=== PATIENT | male | born 1970 | race Caucasian/White ===

== ENCOUNTER 2016-10-01 16:14 | Emergency (ER) | payer BC, OTHER ==
[2016-10-01 16:40] VITALS: BP 119/79
--- NOTE | 2016-10-01 17:11 | UC ---
Hand/Wrist HPI - HPI Summary HPI Summary: 45 yo male with three problems 1. right little finger injury x 1 week jammed hx of remote injury as teen ? fx dislocation 2. ? bilateral inguinal hernias and umbilical hernia x mos 3. multiple tick bites this summer (at least 6) no rash but a week ago had an unexplained fever x 2 days - History Of Current Complaint Chief Complaint: UCUpperExtremity Stated Complaint: TICK BITE,RIGHT HAND PINKY COMPLAINT Time Seen by Provider: 10/01/16 17:00 Hx Obtained From: Patient Onset/Duration: Sudden Onset, Lasting Days Severity Initially: Moderate Pain Intensity: 2 Pain Scale Used: 0-10 Numeric Character Of Pain: Dull, Aching Aggravating Factor(s): Movement Alleviating: Nothing Associated Signs And Symptoms: Positive: Swelling Related History: Dominant Hand Right - Allergies/Home Medications Allergies/Adverse Reactions: Allergies Allergy/AdvReac Type Severity Reaction Status Date / Time No Known Allergies Allergy Verified 10/01/16 16:40 PMH/Surg Hx/FS Hx/Imm Hx Previously Healthy: Yes - Surgical History Surgical History: None - Family History Known Family History: Positive: Hypertension - Social History Alcohol Use: Rare Substance Use Type: None Smoking Status (MU): Heavy Every Day Tobacco Smoker Type: Cigarettes Amount Used/How Often: 3/4 ppd Review of Systems Constitutional: Negative Skin: Negative Eyes: Negative ENT: Negative Respiratory: Negative Cardiovascular: Negative Gastrointestinal: Negative Genitourinary: Negative Motor: Negative Neurovascular: Negative Musculoskeletal: Arthralgia, Decreased ROM, Edema Neurological: Negative Psychological: Negative All Other Systems Reviewed And Are Negative: Yes Physical Exam Triage Information Reviewed: Yes Appearance: Well-Appearing, No Pain Distress, Well-Nourished Vital Signs: Initial Vital Signs Temp 98.9 F 10/01/16 16:34 Pulse 70 10/01/16 16:34 Resp 16 10/01/16 16:34 BP 119/79 10/01/16 16:34 Pulse Ox 98 10/01/16 16:34 Vital Signs Reviewed: Yes Eyes: Positive: Conjunctiva Clear ENT: Positive: Hearing grossly normal. Negative: Nasal congestion, Nasal drainage, Tonsillar swelling, Tonsillar exudate, Trismus, Muffled/hoarse voice Neck: Positive: Supple, Nontender Respiratory: Positive: Lungs clear, Normal breath sounds, No respiratory distress, No accessory muscle use Cardiovascular: Positive: RRR, No Murmur Abdomen Description: Positive: Nontender, Soft, Hernia @ - R/L inguinal and umbilical Musculoskeletal: Positive: Other: - see image Neurological: Positive: Alert Psychological Exam: Normal Skin Exam: Normal Hand/Wrist Course/Dx - Course Course Of Treatment: finger splint applied by MD - Differential Dx/Diagnosis Provider Diagnoses: 1. chip fx dorsum distal prox phal involving PIP joint ( closed/minimally displaced). 2. tick bites. 3. bilateral inguinal hernia/? umbilical hernia Discharge - Discharge Plan Condition: Stable Disposition: HOME Patient Education Materials: Finger Fracture (ED), Inguinal Hernia (ED), Umbilical Hernia (ED) Referrals: Elias Caro MD [Medical Doctor] - As Soon As Possible Additional Instructions: you need to see a general surgeon about your hernias call orthopedist in AM Lyme test pending Images Hands: 1 - swollen/tender/decreased ROM
--- NOTE | 2016-10-01 17:51 | RAD ---
INDICATION: Pain at the proximal interphalangeal joint of the right small finger after "jamming-type injury" one week earlier TECHNIQUE: 3 views of the right small finger were obtained. FINDINGS: Best depicted on the lateral view, there is a minimally displaced fracture involving the dorsal proximal corner of the right small finger middle phalanx. The remaining visualized bones are intact and appropriately aligned. IMPRESSION: MINIMALLY DISPLACED AVULSION FRACTURE INVOLVING THE DORSAL PROXIMAL CORNER OF THE RIGHT SMALL FINGER MIDDLE PHALANX.
== END 2016-10-01 18:10 | disposition home or self-care (01) ==
LOC: UCCORT 16:14
DX: S62.616A Displaced fracture of proximal phalanx of right little finger, initial encounter for closed fracture (principal); W23.0XXA Caught, crushed, jammed, or pinched between moving objects, initial encounter; S30.860A Insect bite (nonvenomous) of lower back and pelvis, initial encounter; W57.XXXA Bitten or stung by nonvenomous insect and other nonvenomous arthropods, initial encounter; Y93.9 Activity, unspecified; Y92.9 Unspecified place or not applicable; K40.20 Bilateral inguinal hernia, without obstruction or gangrene, not specified as recurrent; F17.210 Nicotine dependence, cigarettes, uncomplicated
CPT/HCPCS: 73140; 86618; 99202; G0463

== ENCOUNTER 2017-03-05 08:20 | Inpatient (IN) | payer OTHER ==
[~2017-03-05 08:20] MED LIST: Buffered Lidocaine 0.9% SYRIN* 5 ML/SYR SYRINGE INTRADERM ONE; Dexamethasone IV* 4 MG/ML 1 ML (4 MG) IV SLOW PU ONE; Famotidine IV* 10 MG/ML 2 ML (20 mg) IV ONE
[2017-03-05] MEDS ORDERED: Dexamethasone IV* 4 MG/ML 1 ML (4 MG) ONE (08:41)
[2017-03-05] MEDS ORDERED: Famotidine IV* 10 MG/ML 2 ML (20 mg) ONE (08:41)
[2017-03-05] MEDS ORDERED: ceFAZolin 2 GM PREMIX (*) 2 GM/50 ML BAG IVPB ONE (08:42)
[2017-03-05] MEDS ORDERED: Buffered Lidocaine 0.9% SYRIN* 5 ML/SYR SYRINGE ONE (08:42)
[2017-03-05] MEDS ORDERED: fentaNYL* 50 MCG/ML 2 ML VIAL (100 MCG VIAL) IV PRN (10:53)
[2017-03-05] MEDS ORDERED: oxyCODONE/Acetamin 5/325 MG* TAB PO PRN (10:53)
[2017-03-05] MEDS ORDERED: HYDROcodone/ACETAMIN 5-325 MG* 1 TAB PO PRN (10:53)
[2017-03-05] MEDS ORDERED: PROCHLORPERAZINE INJ 5 MG/ML 2 ML VIAL IV PRN (10:53)
[2017-03-05] MEDS ORDERED: Bupivacaine 0.5% SDV PF* 30 ML VIAL ONE (10:56)
[2017-03-05] MEDS ORDERED: Midazolam* 1 MG/ML 5 ML VIAL (5 MG) ONE (11:03)
[2017-03-05] MEDS ORDERED: fentaNYL* 50 MCG/ML 2 ML VIAL (100 MCG VIAL) ONE (11:03)
[2017-03-05] MEDS ORDERED: Lidocaine 2% PF * 5 ML VIAL ONE (11:10)
[2017-03-05] MEDS ORDERED: Propofol* 10 MG/ML 20 ML BTL IV PUSH ONE (11:10)
[2017-03-05] MEDS ORDERED: Ondansetron INJ* 2 MG/ML VIAL ONE (11:39)
[2017-03-05] MEDS ORDERED: traZODone TAB* 50 MG TAB PO PRN (11:50)
[2017-03-05] MEDS ORDERED: diPHENhydraMINE IV* 50 MG/ML 1 ml VIAL (BENADRYL) IV PRN (11:50)
[2017-03-05] MEDS ORDERED: Ondansetron INJ* 2 MG/ML VIAL IV PRN (11:50)
[2017-03-05] MEDS ORDERED: oxyCODONE TAB* 5 MG TAB PO PRN (11:53)
[2017-03-05] MEDS: Ibuprofen TAB* 600 MG PO PRN (15:53)
[2017-03-05] MEDS: ceFAZolin 1 GM VIAL(*) 1 GM in NS 0.9% 50 ML* 50 ML IVPB SCH (17:45)
[2017-03-06] MEDS: ceFAZolin 1 GM VIAL(*) 1 GM in NS 0.9% 50 ML* 50 ML IVPB SCH ×2 (02:46→09:51)
[2017-03-06] MEDS: Ibuprofen TAB* 600 MG PO PRN ×4 (02:52→23:31)
--- NOTE | 2017-03-06 03:44 | OP ---
DATE OF OPERATION: 03/05/17 - ROOM #340 DATE OF : 68 SURGEON: Emil Tompkins MD MANAGER FLIGHT OPERATIONS: LEONCIO Negrete ANESTHESIOLOGIST: Kera Kwong MD ANESTHESIA: MAC with local anesthesia. PRE-OP DIAGNOSIS: Right foot wound with deep infection. POST-OP DIAGNOSIS: Right foot wound with deep infection. OPERATIVE PROCEDURE: 1. Irrigation and debridement of the right foot below the fascia one area. 2. Placement of a vacuum suction dressing. IMPLANTS: None. TOURNIQUET TIME: Less than 30 minutes with an ankle Esmarch tourniquet. SPECIMENS: Deep culture x2 to Pathology. ESTIMATED BLOOD LOSS: Minimal. COMPLICATIONS: None. STATUS: Stable from the operating room to the recovery room and admitted to the hospital floor. INDICATIONS FOR PROCEDURE: Jamal sustained a crush injury to his right foot sustaining metatarsal fractures and a dorsal foot wound. He had had a bout of cellulitis and improved and the wound was actually starting to improve and then a few days ago he started to notice a purulent drainage. We discussed both nonoperative and operative options at length in the office and in the preoperative holding area. We discussed the nature and risks of surgery in careful detail, which included but were not limited to persistent infection, recurrence, wound problems, nerve injury, neuroma, RSD, persistent symptoms and even the remote chance of a catastrophic complication including the loss of limb. DESCRIPTION OF PROCEDURE: The patient was seen in the preoperative holding unit and informed and written consent was obtained. The appropriate extremity was marked. The patient was then brought to the operating room and carefully positioned on the operating room table. Anesthesia was induced. All bony prominences were padded with great care. A chlorhexidine based pre-scrub was performed followed by prep and drape with Betadine standard sterile fashion. Surgical safety pause was then conducted in which we confirmed the appropriate patient, extremity, planned procedure, availability of equipment, indication, administration of prophylactic antibiotics, which were to be held until cultures were sent and DVT prophylaxis in the form of compression boot on the nonsurgical extremity. We began by placing an ankle Esmarch tourniquet. The small skin bridge between two wounds was then excised and the edges of the wounds were excised as well to get to a bleeding rim. The wound was then explored and it did undermine distally. While dissecting into that area distally, a pocket of pus was encountered and there was obvious purulence expressed. Two sets of cultures were sent from this. Devitalized and infected tissue was removed with a scalpel sharply. The scalpel was also used to incise the fascia. There was no obvious purulence around the tendons and into the deep interosseous space. There was no obvious infection tracking down to the bone. A curette was then used to scrape away any further unhealthy and infected looking tissue and cysto tubing was used to copiously irrigate both the wound and the undermined area. An extensive debridement was performed while irrigating and after the copious irrigation, all the remaining tissue appeared healthy and perfused. The dimensions of the wound were 5 cm wide, 2.5 cm in the proximal and distal direction and about 1.5 cm in depth. Again, there was about 2 cm of undermining distally as well. Minimal blood was lost. At this point, a wound VAC was placed in the standard fashion into the wound, and had great suction without any leaks on a leak check. The patient was then awakened from anesthesia and transferred to the recovery room in stable condition. Complications none. Needle and sponge counts were correct at the end of the case. ATTESTATION: I attest that I was present, scrubbed and performed the entire procedure myself. POSTOPERATIVE PLAN: Jamal will be admitted to the hospital for an infection disease consult, which was placed. We will follow up the OR cultures. He will be weightbearing for the metatarsal fractures and we will come up with an antibiotic plan and go from there. We will plan on changing the VAC every 3 days. [id number]/[facility] #: [id number] MTDAndreea
[2017-03-06] MEDS: Aspirin TAB* 325 MG PO SCH (09:50)
--- NOTE | 2017-03-06 13:08 | PN ---
Progress Note - Progress Note Date of Service: 03/06/17 SOAP: Subjective: 46 y/o male with crush injury to R foot 12/30/2016 with 2nd infection, s/p I&D by Dr. Tompkins 03/05/2017 with wound vac placement. Patient report feeling well, numbness to top of foot, pain controlled. VSS afebrile overnight. Objective: General- Well appearing, NAD AO resting in bed comfortably MSK- wound vac in place, good suction over doral right foot, + rom r toes wihout difficult, cap refill <2 seconds, PT 2+, neg homans R LE, no erythema, streaking noted. SITLT R LE grossly. surgical dressing intact, no drainage, odor noted, wound vac outptu seroang. Vital Signs Temp 97.8 F 03/06/17 11:24 Pulse 65 03/06/17 11:24 Resp 16 03/06/17 11:24 BP 107/64 03/06/17 11:24 Pulse Ox 97 03/06/17 11:24 Intake & Output 03/05/17 03/06/17 03/06/17 18:59 06:59 18:59 Intake Total 1949 1083 769 Output Total 1400 1250 1500 Balance 405 -807 -974 Weight 94.347 kg Intake: IV Fluids 1104 83 30 ABX - CEFAZOLIN 53 LR 154 30 30 NS 50ML, Cefazolin 2G 50 lr 900 IVPB 59 ABX - CEFAZOLIN 59 Medicated IV 60 Cefazolin 60 Oral 785 1000 680 Output: Urine 1400 1250 1500 Other: Estimated Void Medium Medium Date of Last Bowel 03/06/17 Movement # Bowel Movements 1 Estimated Stool Amount Medium # Voids 1 1 Assessment: 46 y/o male with crush injury to R foot 12/30/2016 with 2nd infection, s/p I&D by Dr. Tompkins 03/05/2017 with wound vac placement. Plan: - WBAT with post-op shoe on - Wound vac change in ~ 2-3 days - Follow up with DR. Tompkins as outpatient within 5-7 days - Awaiting ID consultation for recs - Possible d/c home today pending wound vac arrangements and ID recs Active Medications Generic Name Dose Route Start Last Admin Trade Name Freq PRN Reason Stop Dose Admin Acetaminophen 650 mg 03/05/17 11:50 Tylenol Tab* PO Q4H PRN PAIN OR TEMPERATURE Aspirin 325 mg 03/06/17 09:00 03/06/17 09:50 Aspirin Tab* PO 325 mg DAILY ANDRES Administration Diphenhydramine HCl 25 mg 03/05/17 11:50 Benadryl Iv* IV Q6H PRN itching Lactated Ringer's 1,000 mls @ 100 mls/hr 03/05/17 12:00 Lactated Ringers 1000 Ml Bag* IV PER RATE ANDRES Cefazolin Sodium 1 gm/ 50 mls @ 200 mls/hr 03/06/17 18:30 Dextrose IVPB Q8H ANDRES Ibuprofen 600 mg 03/05/17 11:53 03/06/17 09:50 Motrin Tab* PO 600 mg Q6H PRN Administration PAIN Ondansetron HCl 4 mg 03/05/17 11:50 Zofran Inj* IV Q6H PRN nausea Oxycodone HCl 5 mg 03/05/17 11:53 Roxycodone Tab* PO Q4H PRN PAIN Trazodone HCl 25 mg 03/05/17 11:50 Desyrel Tab* PO BEDTIME PRN insomnia <Shae Mcdermott - Last Filed: 03/06/17 13:01> - Progress Note SOAP: Subjective: [] Saw Jamal this evening. Pain improved. Doing well Objective: []improved erythema. vac with good suction Assessment: []Doing well POD1 I&D, vac. Here thru weekend for abx Plan: -Heel Weight bearing only in postop shoe on right foot -IV abx per ID -wound vac change Thursday -Likely home Thursday Emil Tompkins MD [] <Emil Tompkins - Last Filed: 03/06/17 18:07>
[2017-03-06] MEDS: Cefepime 2 GM in Dextrose(*) 2 GM/50 ML BAG IV SCH (15:31)
[2017-03-06] MEDS: metroNIDAZOLE IV 500 MG/100ML* 500 MG/100 ML BAG IVPB SCH (16:19)
[2017-03-06] MEDS ORDERED: ceFAZolin 1 GM VIAL(*) 1 GM in D5W 50 ML BAG* 50 ML IVPB SCH (18:30)
[2017-03-06] MEDS: Acetaminophen TAB* 325 MG PO PRN (21:15)
--- NOTE | 2017-03-06 21:30 | CONS ---
CONSULTATION REPORT: DATE OF CONSULT: 03/06/17 REQUESTING PHYSICIAN: Dr. Tompkins. CONSULTING SERVICE: Infectious Disease. REASON FOR CONSULT: Right foot infection. IMPRESSION: Crush injury to the right foot with a 50-ton trailer in December, multiple fractures, fractured blisters, wound development, which eventually included purulent drainage. Taken to the OR on the [address] Tompkins for incision and debridement of purulent and devitalized infected tissues down to the fascia. Cultures are growing Pseudomonas and group B Strep. Staph PCR is negative. Given the duration since the time of the fracture and open wounds, I think acute osteomyelitis is likely and that we shall treat as such. RECOMMENDATION: Start cefepime 2 g IV every 12 hours. We will check his kidney function. We will add Flagyl 500 mg IV every 12 hours. Once we have the final susceptibility data, I will come up with a long-term home IV antibiotic plan for him. HISTORY OF PRESENT ILLNESS: This is a 46-year-old man who was at work when he had a crush injury of the right foot when 50-ton trailer fell on his wearing steel toe boots. He was originally taken care of in [place]. He eventually got a second opinion from Dr. Tompkins and in January had a CT scan on the that showed transverse nondisplaced fracture of the distal first metatarsal , a displaced fracture of the distal second metatarsal, a nondisplaced fracture of the mid third metatarsal, and a nondisplaced fracture of the distal fourth metatarsal. He had developed fever blisters previously and was also being treated with Keflex and IV clindamycin from time to time in [place]. His wounds have been healing, but then opened up and started having purulent drainage last week. Dr. Tompkins admitted him on for debridement as described above. He has got some pain. He has no fever, chills, or sweats. Not having diarrhea on Ancef here. PAST MEDICAL HISTORY: Osteoarthritis. MEDICATIONS: 1. Tylenol. 2. Aspirin. 3. Ancef 1 g IV every 8 hours. 4. Ibuprofen. 5. Trazodone. 6. Oxycodone. ALLERGIES: No known drug allergies. FAMILY HISTORY: No recurrent infections. SOCIAL HISTORY: Lives in [place], works for the [employer]. Lives with family. No travel. No sick contacts. REVIEW OF SYSTEMS: All negative, except as noted above. PHYSICAL EXAM: Vital Signs: Temperature 36.6, heart rate 60, respiratory rate 16, blood pressure 107/64, O2 sat 97% on room air. In general, he is awake, not in distress. Neurologic: He is oriented x3, follows all commands. HEENT: There is no conjunctival hemorrhage. Oropharynx: Without lesions. Neck: Supple without nuchal rigidity. Lymph Nodes: There is no inguinal, axillary, or epitrochlear lymphadenopathy. Heart is regular rate and rhythm without murmurs, rubs, or gallops. Lungs are clear to auscultation bilaterally. Abdomen: Soft, nontender, nondistended. There are bowel sounds present. Skin : There is no rash or splinter hemorrhage. Musculoskeletal: Right foot is casted. DIAGNOSTIC STUDIES/LAB DATA: None presently. The Gram-stain showed gram- positive cocci and gram-negative rods. The culture is growing Pseudomonas and group B Strep. Staph aureus PCR was negative. Please see impressions and recommendations outlined above. Thank you for asking me to see Mr. Whitmore in consultation. [id number]/[facility] #: [id number] CATHOLIC HEALTHAndreea
[2017-03-07] MEDS: Cefepime 2 GM in Dextrose(*) 2 GM/50 ML BAG IV SCH ×2 (02:58→15:19)
[2017-03-07] MEDS: metroNIDAZOLE IV 500 MG/100ML* 500 MG/100 ML BAG IVPB SCH ×2 (03:43→15:51)
[2017-03-07 05:40] LABS: Hematocrit 37 % (42-52); Hemoglobin 12.6 g/dl (14.0-18.0); Mean Corpuscular HGB Conc 34 g/dl (31-36); Mean Corpuscular Hemoglobin 29 pg (27-31); Mean Corpuscular Volume 85 fL (80-94); Mean Platelet Volume 10 um3 (7.4-10.4); Red Blood Count 4.38 10^6/ul (4.0-5.4); Red Cell Distribution Width 14 % (10.5-15); White Blood Count 6.6 10^3/ul (3.5-10.8)
[2017-03-07 05:51] LABS: Albumin 3.8 g/dL (3.2-5.2); BUN/Creatinine Ratio 19.4 (8-20); Calcium 8.9 mg/dL (8.6-10.3); EGFR African American 105.4 (>60); Globulin 2.1 g/dL (2-4); Potassium 4.3 mmol/L (3.5-5.0); Total Bilirubin 0.5 mg/dL (0.2-1.0); Total Protein 5.9 g/dL (6.4-8.9)
[2017-03-07] MEDS: Ibuprofen TAB* 600 MG PO PRN ×3 (08:36→21:22)
[2017-03-07] MEDS: Aspirin TAB* 325 MG PO SCH (08:36)
--- NOTE | 2017-03-07 10:29 | PN ---
Progress Note - Progress Note Date of Service: 03/07/17 SOAP: Subjective: Foot feels better. no complaints [] Objective: Temp Pulse Resp BP Pulse Ox 97.1 F 56 16 108/69 98 03/07/17 08:06 03/07/17 08:06 03/07/17 08:40 03/07/17 08:06 03/07/17 08:40 R foot: erythema and edema improved vac with good suction WBC 5.6 Cx's growing pseudamonas and strep agaltaciae [] Assessment: doing well POD2 foot I&D and vac [] Plan: Heel WB in postop shoe RLE vac at 125 abx per ID []
[2017-03-07] MEDS: Acetaminophen TAB* 325 MG PO PRN ×2 (12:43→20:05)
[2017-03-08] MEDS: Cefepime 2 GM in Dextrose(*) 2 GM/50 ML BAG IV SCH ×2 (02:57→15:12)
[2017-03-08] MEDS: Ibuprofen TAB* 600 MG PO PRN ×3 (03:31→23:41)
[2017-03-08] MEDS: metroNIDAZOLE IV 500 MG/100ML* 500 MG/100 ML BAG IVPB SCH ×2 (04:02→15:45)
[2017-03-08] MEDS: Aspirin TAB* 325 MG PO SCH (08:27)
--- NOTE | 2017-03-08 09:32 | PN ---
Progress Note - Progress Note Date of Service: 03/08/17 SOAP: Subjective: POD #3 right foot I&D with VAC placement. States that he is doing ok, foot is sore. Denies CP/SOB, f/c Objective: Vitals: Temp Pulse Resp BP Pulse Ox 97.1 F 56 18 125/75 95 03/08/17 07:28 03/08/17 07:28 03/08/17 08:00 03/08/17 07:28 03/08/17 08:00 Gen: A&Ox3, NAD at rest sitting in bed RLE: VAC dressing C/D/I, mild edema to foot. No erythema or warmth. Sensation decreased to toes but intact to light touch. +f/e at MTPs. DP 2+ Labs: Microbiology 03/05/17 11:32 Skin and Soft Tissue MRSA/MSSA (PCR - Final Foot Right Mrsa Negative S.aureus Negative Gram Stain - Final Wound Culture - Preliminary Pseudomonas Aeruginosa Strep Agalactiae - (Group B) Serratia Marcescens 03/05/17 11:32 Anaerobic Culture - Preliminary Wound - Right Assessment: POD #3 Right foot I&D with VAC placement Plan: PICC to be placed tomorrow, possible d/c after that Needs IV abx, awaiting ID recs Will change VAC dressing tomorrow prior to d/c, will need home VAC machine
[2017-03-09] MEDS: Acetaminophen TAB* 325 MG PO PRN ×3 (01:06→19:21)
[2017-03-09] MEDS: Cefepime 2 GM in Dextrose(*) 2 GM/50 ML BAG IV SCH ×2 (03:11→15:31)
[2017-03-09] MEDS: metroNIDAZOLE IV 500 MG/100ML* 500 MG/100 ML BAG IVPB SCH ×2 (03:50→16:08)
[2017-03-09] MEDS: Ibuprofen TAB* 600 MG PO PRN ×3 (07:53→22:06)
[2017-03-09] MEDS: Aspirin TAB* 325 MG PO SCH (07:53)
--- NOTE | 2017-03-09 11:57 | RAD ---
HISTORY: PICC placement COMPARISONS: None VIEWS: 1: frontal portable view of the chest at 11:35 AM FINDINGS: LINES AND TUBES: Right-sided PICC line is noted with the tip overlying the cavoatrial junction. CARDIOMEDIASTINAL SILHOUETTE: The cardiomediastinal silhouette is normal for portable technique. PLEURA: The costophrenic angles are sharp. No pleural abnormalities are noted. LUNG PARENCHYMA: The lungs are clear. ABDOMEN: The upper abdomen is clear. There is no subphrenic gas. BONES AND SOFT TISSUES: No bone or soft tissue abnormalities are noted. IMPRESSION: LINES AND TUBES ABOVE. NO ACTIVE CARDIOPULMONARY DISEASE.
--- NOTE | 2017-03-09 12:16 | PN ---
Progress Note - Progress Note Date of Service: 03/09/17 SOAP: Subjective: 46 y/o male with crush injury to R foot 12/30/2016 with 2nd infection, s/p I&D by Dr. Tompkins 03/05/2017 with wound vac placement. patient continues to feel well, vss afebrile. PICC placed without complication. Objective: General- Well appearing, resting comfortably, NAD AO MSK- + toe movement, pink, no edema, Wound vac in place, good suction. Vital Signs Temp 97.5 F 03/09/17 07:37 Pulse 63 03/09/17 07:37 Resp 16 03/09/17 07:54 BP 122/79 03/09/17 07:37 Pulse Ox 97 03/09/17 07:54 Intake & Output 03/08/17 03/09/17 03/09/17 18:59 06:59 18:59 Intake Total 930 1053 700 Output Total 2275 1800 1000 Balance -1345 -747 -300 Intake: IV Fluids 93 Flagyl 93 Oral 930 960 700 Output: Urine 2275 1800 1000 Other: Estimated Void Medium Assessment: 46 y/o male with crush injury to R foot 12/30/2016 with 2nd infection, s/p I&D by Dr. Tmopkins 03/05/2017 with wound vac placement. Plan: - Possible DC today- awaiting ID recs as well as VNS services. - Wound vac to be changed by Dr. Ahn and Ileana Kline later today. Active Medications Generic Name Dose Route Start Last Admin Trade Name Freq PRN Reason Stop Dose Admin Acetaminophen 650 mg 03/05/17 11:50 03/09/17 01:06 Tylenol Tab* PO 650 mg Q4H PRN Administration PAIN OR TEMPERATURE Aspirin 325 mg 03/06/17 09:00 03/09/17 07:53 Aspirin Tab* PO 325 mg DAILY ANDRES Administration Diphenhydramine HCl 25 mg 03/05/17 11:50 Benadryl Iv* IV Q6H PRN itching Heparin Sodium (Porcine) 1 - 3 ml 03/09/17 18:00 Heparin Flush Picc/Ml/Cvc(*) FLUSH 0600,1800 ANDRES Protocol Lactated Ringer's 1,000 mls @ 100 mls/hr 03/05/17 12:00 Lactated Ringers 1000 Ml Bag* IV PER RATE ANDRES Cefepime HCl 2 gm in 50 mls @ 100 mls/hr 03/06/17 15:00 03/09/17 03:11 Maxipime 2 Gm In Dextrose Duplex (*) IV 100 mls/hr Q12H ANDRES Administration Metronidazole/Sodium Chloride 500 mg in 100 mls @ 100 mls/hr 03/06/17 15:30 03/09/17 03:50 Flagyl 500 Mg Ivpb* IVPB 100 mls/hr Q12H ANDRES Administration Ibuprofen 600 mg 03/05/17 11:53 03/09/17 07:53 Motrin Tab* PO 600 mg Q6H PRN Administration PAIN Ondansetron HCl 4 mg 03/05/17 11:50 Zofran Inj* IV Q6H PRN nausea Oxycodone HCl 5 mg 03/05/17 11:53 Roxycodone Tab* PO Q4H PRN PAIN Trazodone HCl 25 mg 03/05/17 11:50 Desyrel Tab* PO BEDTIME PRN insomnia
--- NOTE | 2017-03-09 12:27 | PN ---
Progress Note - Progress Note Date of Service: 03/09/17 SOAP: Subjective: CC: right foot infection HPI: 46 year old man who had a R foot crush injury in December with multiple metatarsal fractures; eventually developed blister and a wound for about the last 5 weeks. Developed purulent drainage; I&D by Dr Casey this admission. No fever, rash, or diarrhea. Objective: [] Vital Signs Temp 36.4 C 03/09/17 07:37 Pulse 63 03/09/17 07:37 Resp 16 03/09/17 07:54 BP 122/79 03/09/17 07:37 Pulse Ox 97 03/09/17 07:54 Intake & Output 03/08/17 03/09/17 03/09/17 18:59 06:59 18:59 Intake Total 930 1053 700 Output Total 2275 1800 1000 Balance -1266 -747 -300 Intake: IV Fluids 93 Flagyl 93 Oral 930 960 700 Output: Urine 2275 1800 1000 Other: Estimated Void Medium Gen:awake, no distress HEENT:PERRL, MMM Heart:RRR no murmur Lungs:CTA BL Abd:+BS NTND soft Skin: No rash MSK: R foot wrapped Laboratory Tests 03/07/17 03/07/17 05:11 05:11 WBC 6.6 RBC 4.38 Hgb 12.6 L Hct 37 L MCV 85 MCH 29 MCHC 34 RDW 14 Plt Count 148 L MPV 10 Sodium 139 Potassium 4.3 Chloride 108 Carbon Dioxide 26 Anion Gap 5 BUN 19 Creatinine 0.98 Est GFR ( Amer) 105.4 Est GFR (Non-Af Amer) 82.0 BUN/Creatinine Ratio 19.4 Glucose 90 Calcium 8.9 Total Bilirubin 0.50 AST 25 ALT 34 Alkaline Phosphatase 42 Total Protein 5.9 L Albumin 3.8 Globulin 2.1 Albumin/Globulin Ratio 1.8 Microbiology 03/05/17 11:32 Wound - Right Anaerobic Culture - Final Prevotella Species 03/05/17 11:32 Foot Right Skin and Soft Tissue MRSA/MSSA (PCR - Final Mrsa Negative S.aureus Negative 03/05/17 11:32 Foot Right Gram Stain - Final 03/05/17 11:32 Foot Right Wound Culture - Final Pseudomonas Aeruginosa Strep Agalactiae - (Group B) Serratia Marcescens Normal Kimberly Assessment: 1. right foot wound, no pressure related with abscess and acute osteomyelitis; polymicrobial 2. right foot metatarsal fractures Plan: 1. continue cefepime 2 gm IV Q12hrs day and flagyl 500 mg po bid day ; weekly cbc, cmp, crp via PICC 35 minutes floor time >50% in counseling regarding antibiotic treatment, side effects, and monitoring
[2017-03-10] MEDS: Acetaminophen TAB* 325 MG PO PRN ×3 (00:06→23:34)
[2017-03-10] MEDS: Cefepime 2 GM in Dextrose(*) 2 GM/50 ML BAG IV SCH ×2 (03:21→15:11)
[2017-03-10] MEDS: metroNIDAZOLE IV 500 MG/100ML* 500 MG/100 ML BAG IVPB SCH ×2 (03:54→15:54)
[2017-03-10] MEDS: Ibuprofen TAB* 600 MG PO PRN ×3 (04:01→21:30)
[2017-03-10] MEDS: Aspirin TAB* 325 MG PO SCH (08:39)
--- NOTE | 2017-03-10 09:15 | PN ---
Progress Note - Progress Note Date of Service: 03/10/17 SOAP: Subjective: []Patient seen at bedside, He feels well and has no pain. Denies CP, SOB Objective: General- Well appearing, resting comfortably, NAD MSK- toe movement intact and brisk capillary refill. No edema, wound vac in place, dressing CDI. Sensation intact digits 1,2,4,5. Vital Signs Temp 97.6 F 03/10/17 07:37 Pulse 65 03/10/17 07:37 Resp 16 03/10/17 08:42 BP 125/75 03/10/17 07:37 Pulse Ox 99 03/10/17 08:42 Intake & Output 03/09/17 03/10/17 03/10/17 18:59 06:59 18:59 Intake Total 2406 1085.1 Output Total 2250 1600 700 Balance 156 -514.9 -700 Intake: IV Fluids 141 45.1 Cefapime 50 45.1 Flagyl 91 Oral 2265 1040 Output: Urine 2250 1600 700 Other: # Bowel Movements 2 Estimated Stool Amount Medium Laboratory Last Values WBC 6.6 10^3/ul (3.5-10.8) 03/07/17 05:11 RBC 4.38 10^6/ul (4.0-5.4) 03/07/17 05:11 Hgb 12.6 g/dl (14.0-18.0) L 03/07/17 05:11 Hct 37 % (42-52) L 03/07/17 05:11 MCV 85 fL (80-94) 03/07/17 05:11 MCH 29 pg (27-31) 03/07/17 05:11 MCHC 34 g/dl (31-36) 03/07/17 05:11 RDW 14 % (10.5-15) 03/07/17 05:11 Plt Count 148 10^3/ul (150-450) L 03/07/17 05:11 MPV 10 um3 (7.4-10.4) 03/07/17 05:11 Sodium 139 mmol/L (133-145) 03/07/17 05:11 Potassium 4.3 mmol/L (3.5-5.0) 03/07/17 05:11 Chloride 108 mmol/L (101-111) 03/07/17 05:11 Carbon Dioxide 26 mmol/L (22-32) 03/07/17 05:11 Anion Gap 5 mmol/L (2-11) 03/07/17 05:11 BUN 19 mg/dL (6-24) 03/07/17 05:11 Creatinine 0.98 mg/dL (0.67-1.17) 03/07/17 05:11 Est GFR ( Amer) 105.4 (>60) 03/07/17 05:11 Est GFR (Non-Af Amer) 82.0 (>60) 03/07/17 05:11 BUN/Creatinine Ratio 19.4 (8-20) 03/07/17 05:11 Glucose 90 mg/dL (70-100) 03/07/17 05:11 Calcium 8.9 mg/dL (8.6-10.3) 03/07/17 05:11 Total Bilirubin 0.50 mg/dL (0.2-1.0) 03/07/17 05:11 AST 25 U/L (13-39) 03/07/17 05:11 ALT 34 U/L (7-52) 03/07/17 05:11 Alkaline Phosphatase 42 U/L (34-104) 03/07/17 05:11 Total Protein 5.9 g/dL (6.4-8.9) L 03/07/17 05:11 Albumin 3.8 g/dL (3.2-5.2) 03/07/17 05:11 Globulin 2.1 g/dL (2-4) 03/07/17 05:11 Albumin/Globulin Ratio 1.8 (1-3) 03/07/17 05:11 Assessment: 46 y/o male with crush injury to R foot 12/30/2016 with 2nd infection, s/p I&D by Dr. Tompkins 03/05/2017 with wound vac placement. Plan: - DC today or tomorrow, pending home care availability - ID Rec: continue cefepime 2 gm IV Q12hrs day and flagyl 500 mg po bid day ; weekly cbc, cmp, crp via PICC
[2017-03-11] MEDS: Cefepime 2 GM in Dextrose(*) 2 GM/50 ML BAG IV SCH (03:19)
[2017-03-11] MEDS: Ibuprofen TAB* 600 MG PO PRN ×2 (03:24→09:23)
[2017-03-11] MEDS: metroNIDAZOLE IV 500 MG/100ML* 500 MG/100 ML BAG IVPB SCH (03:57)
--- NOTE | 2017-03-11 08:14 | PN ---
Progress Note - Progress Note Date of Service: 03/11/17 SOAP: Subjective: []Patient seen at bedside. He denies pain aside from when dressing is changed. Denies fever, chills, nausea, CP, SOB. Objective: []General- Well appearing, resting comfortably, NAD. RLE: DF/PF intact. Toe movement intact and brisk capillary refill distally. No edema, wound vac in place, dressing CDI. Sensation intact dorsal surface of digits 1,2,4,5 and plantar surface of digits 1-5. BL LE: calves supple and nontender without erythema, edema or palpable cords. Vital Signs Temp 98.0 F 03/11/17 03:15 Pulse 73 03/11/17 03:15 Resp 16 03/11/17 03:15 BP 105/73 03/11/17 03:15 Pulse Ox 96 03/11/17 03:15 Intake & Output 03/10/17 03/11/17 03/11/17 18:59 06:59 18:59 Intake Total 1425 860 Output Total 1400 1600 Balance 25 -740 Intake: IV Fluids 145 Cefapime 50 Flagyl 95 Oral 1280 860 Output: Urine 1400 1600 Laboratory Last Values WBC 6.6 10^3/ul (3.5-10.8) 03/07/17 05:11 RBC 4.38 10^6/ul (4.0-5.4) 03/07/17 05:11 Hgb 12.6 g/dl (14.0-18.0) L 03/07/17 05:11 Hct 37 % (42-52) L 03/07/17 05:11 MCV 85 fL (80-94) 03/07/17 05:11 MCH 29 pg (27-31) 03/07/17 05:11 MCHC 34 g/dl (31-36) 03/07/17 05:11 RDW 14 % (10.5-15) 03/07/17 05:11 Plt Count 148 10^3/ul (150-450) L 03/07/17 05:11 MPV 10 um3 (7.4-10.4) 03/07/17 05:11 Sodium 139 mmol/L (133-145) 03/07/17 05:11 Potassium 4.3 mmol/L (3.5-5.0) 03/07/17 05:11 Chloride 108 mmol/L (101-111) 03/07/17 05:11 Carbon Dioxide 26 mmol/L (22-32) 03/07/17 05:11 Anion Gap 5 mmol/L (2-11) 03/07/17 05:11 BUN 19 mg/dL (6-24) 03/07/17 05:11 Creatinine 0.98 mg/dL (0.67-1.17) 03/07/17 05:11 Est GFR ( Amer) 105.4 (>60) 03/07/17 05:11 Est GFR (Non-Af Amer) 82.0 (>60) 03/07/17 05:11 BUN/Creatinine Ratio 19.4 (8-20) 03/07/17 05:11 Glucose 90 mg/dL (70-100) 03/07/17 05:11 Calcium 8.9 mg/dL (8.6-10.3) 03/07/17 05:11 Total Bilirubin 0.50 mg/dL (0.2-1.0) 03/07/17 05:11 AST 25 U/L (13-39) 03/07/17 05:11 ALT 34 U/L (7-52) 03/07/17 05:11 Alkaline Phosphatase 42 U/L (34-104) 03/07/17 05:11 Total Protein 5.9 g/dL (6.4-8.9) L 03/07/17 05:11 Albumin 3.8 g/dL (3.2-5.2) 03/07/17 05:11 Globulin 2.1 g/dL (2-4) 03/07/17 05:11 Albumin/Globulin Ratio 1.8 (1-3) 03/07/17 05:11 Assessment: [] s/p I&D by Dr. Tompkins 03/05/2017 with wound vac placement Plan: - DC today - ID Rec: continue cefepime 2 gm IV Q12hrs day and flagyl 500 mg po bid day ; weekly cbc, cmp, crp via PICC -- IV antibiotics and labs managed by by David -- Vac changes by ortho office and wound clinic
[2017-03-11] MEDS: Acetaminophen TAB* 325 MG PO PRN (08:17)
[2017-03-11] MEDS: Aspirin TAB* 325 MG PO SCH (09:23)
[2017-03-11 11:58] VITALS: BP 122/80
--- NOTE | 2017-03-12 04:56 | DS ---
DISCHARGE SUMMARY: DATE OF OPERATION: 03/05/17 DATE OF DISCHARGE: 03/11/17 PROVIDER/SURGEON: Dr. Emil Tompkins.* (DICTATED BY LEONCIO HARMON) SOFTWARE QA MANAGER: LEONCIO Negrete. PREOPERATIVE DIAGNOSIS: Right foot wound with deep infection. OPERATIVE PROCEDURE: Irrigation and debridement of the right foot below the fascial wound area, placement of vacuum suction dressing. HISTORY: Jamal is a 46-year-old male who had sustained a crush injury to his right foot resulting in metatarsal fractures and a dorsal foot wound. He then had a bout of cellulitis and despite apparent improvement a few days prior to admission, he started to notice purulent drainage. At this time, Dr. Tompkins and the patient, Mr. Whitmore elected to proceed with surgical intervention. HOSPITAL COURSE: The patient was admitted to [facility] on . He underwent a right foot I and D and wound VAC placement by Dr. Tompkins without complication. He was brought to the PACU after surgery for a short period and then brought to the short-stay surgical unit in stable condition. On postop day #1, the patient was well appearing, in no acute distress. His wound VAC was in place with good suction over the dorsal right foot. He had good range of motion of the right toes without difficulty. Capillary refill is less than 2 seconds. Posterior tibial pulse is 2+. Negative Homans sign. No erythema or streaking noted. On postop day 2, the patient had improvement of erythema and edema. Wound VAC still with good suction. Labs showed H and H of 12.6 and 37. On postop day 3, the patient had mild edema of the foot. VAC and dressing were clean, dry, and intact. Sensation was decreased to toes, but intact to light touch. Good flexion, extension at the MTP, 2+ dorsalis pedis pulse. On postop day 3, the patient was tolerating good toe movement, wound VAC in place with good suction. He was seen by Infectious Disease, Dr. Spencer whose recommendation was to continue cefepime 2 g IV q.12 hours and Flagyl 500 mg p.o. b.i.d. to continue both of these for a total of 42 days with a weekly CBC, CMP, and CRP via PICC line. Postop day 4, wound VAC was changed without any complications. Postop day 5, the patient is again well appearing, resting comfortably. Dorsiflexion and plantar flexion are intact. Toe movement is intact with brisk capillary refill distally. No edema. Wound VAC is in place. Dressing is clean, dry, and intact. Sensation is intact at the dorsal surface of digits 1, 2, 4 and 5 with minimal to no sensation over the third digit dorsal aspect, and the patient has intact sensation of plantar surface of digits 1 through 5. Calves are supple and nontender without erythema , edema, or palpable cords. The patient was afebrile and vital signs remained stable throughout his stay. Vital signs on day of discharge; temp 98.0, pulse rate 91, respiratory rate 17, oxygen saturation 97, and blood pressure 122/18. The patient was deemed medically and orthopedically stable for discharge. DISCHARGE MEDICATIONS: 1. Acetaminophen 325 mg tablets, 650 mg p.o. q.4 hours p.r.n. not to exceed 4000 mg per day from all sources. 2. Aspirin 325 mg p.o. daily. 3. Flagyl 500 mg p.o. b.i.d. for a total of 42 days. 4. Percocet 5/325 one tab p.o. q.4 hours p.r.n., not to exceed 5 per day. This medication should be used sparingly. 5. Cefepime 2 g IV q.12 hours for a total of 42 days. DISCHARGE PLAN: Wound VAC and dressing to be kept clean, dry, and intact. Orthopedic office as well as [facility] will manage the wound VAC with VAC changes on Tuesdays and Fridays. Antibiotics and lab draws to be managed by Sonali. The patient will have a weekly CBC, CMP, and CRP via the PICC line. He is weightbearing as tolerated. LEONCIO HARMON [id number]/[facility] #: [id number] TANESHA
== END 2017-03-11 12:25 | disposition home or self-care (01) | DRG 721 ==
LOC: AA 08:20 → SSU 13:12
PROVIDERS: ADMIT Orthopaedic Surgery; ATTEND Orthopaedic Surgery
PROC: 0JBQ0ZZ Excision of Right Foot Subcutaneous Tissue and Fascia, Open Approach (ICD-10-PCS; principal; 2017-03-05 10:00)
PROC: 05H633Z Insertion of Infusion Device into Left Subclavian Vein, Percutaneous Approach (ICD-10-PCS; 2017-03-09)
DX: T81.4XXA Infection following a procedure, initial encounter (principal); M86.171 Other acute osteomyelitis, right ankle and foot; B96.5 Pseudomonas (aeruginosa) (mallei) (pseudomallei) as the cause of diseases classified elsewhere; B95.1 Streptococcus, group B, as the cause of diseases classified elsewhere; X58.XXXA Exposure to other specified factors, initial encounter; M19.90 Unspecified osteoarthritis, unspecified site; S92.314D Nondisplaced fracture of first metatarsal bone, right foot, subsequent encounter for fracture with routine healing; S92.321D Displaced fracture of second metatarsal bone, right foot, subsequent encounter for fracture with routine healing; S92.334D Nondisplaced fracture of third metatarsal bone, right foot, subsequent encounter for fracture with routine healing; W31.82XD Contact with other commercial machinery, subsequent encounter
CPT/HCPCS: 36415; 71010; 80053; 85027; 87070; 87073; 87076; 87077; 87186; 87205; 87640; 87641; A9270-GY; C1751; J0690; J0692; J1100; J2250; J2405; J2704; J3010; J3490